=== PATIENT | female | born 1990 | race Caucasian/White ===

== ENCOUNTER 2023-08-16 13:02 | Inpatient (IN) | payer OTHER, SELFPAY ==
[2023-08-16] VITALS (41 sets, daily range): BP systolic 84–116; BP diastolic 37–67; PULSE 29–101; O2SAT 86–100; BMI 24.5
--- NOTE | ~2023-08-16 | US_ITS ---
EXAMINATION: US pelvic complete DATE: 08/17/2023 09:15 INDICATION: Assess for retained product of conception post demise during second trimester of pr egnancy. TECHNIQUE: Multiple transabdominal sonographic images of the pelvis were obtained. COMPARISON: None. FINDINGS: The uterus measures 14.8 x 8.0 x 9.4 cm. The endometrial complex is significantly thickened measurin g up to 4.4 cm in thickness. There is heterogeneous echogenicity of the endometrial complex with mult iple hyperechoic and shadowing foci inferiorly. There is increased vascular flow at the margins of bu t not definitively within the endometrial complex. The right and left ovaries are not visualized. The re is small amount of anechoic free fluid in the pelvis. IMPRESSION: 1. Enlarged uterus with thickened endometrial complex measuring up to 4.4 cm which is abnormal and co nsistent with retained products of conception. Reviewed, dictated and finalized at location A. IMPRESSION: 1. Enlarged uterus with thickened endometrial complex measuring up to 4.4 cm wh ich is abnormal and consistent with retained products of conception.
--- NOTE | 2023-08-16 13:10 | PC.NURSE ---
Dr Cueva at bedside, bedside US performed and no FHT's were noted. Plan of care discussed with patient and spouse. Patient slightly tearful.
[2023-08-16] MEDS: miSOPROStol 200 MCG TABLET 800 MCG VAGINAL (15:00)
[2023-08-16 15:55] LABS: Thyroid Stimulating Hormone 0.897 uIU/mL (0.465-4.680)
[2023-08-16 16:12] LABS: Free T4 Free Thyroxine 0.93 ng/mL (0.78-2.19)
[2023-08-16 16:23] LABS: Rubella IgG Antibody 35.2 IU/ML
--- NOTE | 2023-08-16 16:23 | PM.IMHP ---
H&P: HPI History of Present Illness Date/Time: 08/16/23 16:23 Chief Complaint: decreased movement Narrative: Dimple is a 33yo , @ 21.5wks (BENJA 12/22/[birth year]) who presented to L&D w/ decreased movements. She has been receiving PNC with [facility] where brain anomalies were noted on her anatomy US. Genetic testing via amniocentesis was performed; results pending. No pain/bleeding. No fever, chills. Review of Systems Constitutional: Constitutional: Denies chills, Denies fever(s) and Denies headache(s) Eyes: Eyes: Denies change in vision ENT: Denies headache(s) Cardiovascular: Cardiovascular: Denies chest pain and Denies dyspnea Respiratory: Respiratory: Denies dyspnea Genitourinary: Genitourinary: Denies abnormal vaginal bleeding, Denies pelvic pain and Denies vaginal discharge Neurologic: Denies headache(s) Psychiatric: Psychiatric: Denies anxiety and Denies depression [facility] Surgical History Surgical History (Updated 08/16/23 @ 16:27 by Toya Cueva MD) H/O unilateral salpingectomy ruptured ectopic Meds Vital Signs Vital Signs - 24 hr 08/16/23 15:01 08/16/23 15:15 08/16/23 15:31 Pulse Rate 85 82 79 Blood Pressure 103/64 112/65 108/65 08/16/23 16:01 Pulse Rate 88 Blood Pressure 111/44 L Exam Const: General: cooperative, healthy appearing, comfortable and no acute distress Orientation/consciousness: patient oriented x3 Resp: Effort & Inspection: normal respiratory effort Cardio: Rate: regular rate GI: GI Palp: No abdominal tenderness : Other: FHT's: none observed via bedside US TOCO: no ctxs Cervix: closed Membranes: intact Presentation: cephalic Skin: General skin exam: normal color Neuro: General: patient oriented x3 Extrem: General: normal to inspection Psych: Appearance: grossly normal Affect: normal affect Attitude: cooperative Assessment and Plan Assessment and plan (1) IUFD at 20 weeks or more of gestation: Code(s): O36.4XX0 - Maternal care for intrauterine , not applicable or unspecified Status: Acute Plan - 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
--- NOTE | 2023-08-16 17:00 | PC.NURSE ---
Patient starting to feel cramping. Declining medication at this time. Encouraged to call pain medications is wanted.
[2023-08-16 17:57] LABS: Basophils Absolute Auto 0.1 K/mm3 (0.0-0.1); Basophils Percent Auto 0.5 % (0.2-1.2); Eosinophils Absolute Auto 0.1 K/mm3 (0-0.3); Eosinophils Percent Auto 1.1 % (0-4.4); Hematocrit 39.5 % (37.0-47.0); Hemoglobin 12.6 g/dL (12.0-15.0); Hemoglobin A1C 4.9 % (<5.7); Immature Granulocyte Absolute 0.04 K/mm3 (0.00-0.031); Immature Granulocyte Percent A 0.4 % (0-0.5); Lymphocytes Absolute Auto 1.94 K/mm3 (0.9-3.2); Lymphocytes Percent Auto 20.9 % (18.3-44.2); Mean Corpuscular HGB Conc 31.9 g/dl (32-36); Mean Corpuscular Hemoglobin 30.4 pg (26-34); Mean Corpuscular Volume 95.4 fl (80-100); Mean Platelet Volume 9.5 fl (7.4-10.4); Monocytes Absolute Auto 0.5 K/mm3 (0.1-0.6); Monocytes Percent Auto 5.4 % (2.6-8.5); Neutrophils Absolute Auto 6.7 K/mm3 (1.3-6.7); Neutrophils Percent Auto 71.7 % (45.5-73.1); Platelet Count Result 311 k/mm3 (150-375); Red Blood Count 4.14 M/mm3 (4.2-5.4); Red Cell Distribution Width 14.1 % (11.5-14.5); White Blood Count 9.3 K/mm3 (4.5-10.0)
[2023-08-16] MEDS: fentaNYL CITRATE INJ (*CRX) 100 MCG/2 ML VIAL 50 MCG IV PUSH ×2 (17:59→19:05)
[2023-08-16] MEDS: LACTATED RINGERS 500 ML 999 ML IV CONT (18:59)
--- NOTE | 2023-08-16 19:12 | PC.NURSE ---
1858 Dr. Cueva called in for report on patient. Report given that patient was rating her pain 7/10, having rectal and lower back pain and was requesting her epidural. Reported that fluid bolus was going and anesthesia will be called as soon as that is in. Orders were given by Dr. Cueva to hold the 1899 order for 400 mcg cytotec buccal until epidural was given. Dr. Cueva will be in around 2099 to check patient.
--- NOTE | 2023-08-16 19:51 | WPDANESEPP ---
Anes - Eval Pre Procedure Procedure: labor epidural Date/Time: 08/16/23 19:51 Surgeon: [email or web address] Preop Diagnosis: pain during labor Pre Op Diagnosis: IUFD Patient Data Age: 33 Gender: F Height: 1.55 m Weight: 59 kg Last Vital Signs Pulse 79 08/16/23 17:31 BP 95/37 L 08/16/23 17:31 O2 Del Method Room Air 08/16/23 15:00 Allergies Allergy/AdvReac Type Severity Reaction Status Date / Time No Known Allergies Allergy Verified 08/16/23 17:52 Laboratory Tests 08/16/23 08/16/23 08/16/23 15:01 15:01 15:01 WBC RBC Hgb Hct MCV MCH MCHC RDW Plt Count MPV Immature Gran % (Auto) Neut % (Auto) Lymph % (Auto) [place] % (Auto) Eos % (Auto) Baso % (Auto) Lymph # (Auto) [place] # (Auto) Eos # (Auto) Baso # (Auto) Abs Immat Gran (auto) Absolute Neuts (auto) Absolute Nucleated RBC Nucleated RBC % LA PTT Screen Pending dRVVT Screen Pending dRVVT Additional Test Pending Lupus Anticoag Interp Pending Hemoglobin A1c TSH 0.897 uIU/mL (0.465-4.680) Free T4 0.93 ng/mL (0.78-2.19) Urine Opiates Screen Pending Urine Methadone Screen Pending Ur Barbiturates Screen Pending Ur Phencyclidine Scrn Pending Ur Amphetamine Screen Pending U Benzodiazepines Scrn Pending Urine Cocaine Screen Pending U Cannabinoids Screen Pending Beta-2-GPI IgG Ab Pending Pending Beta-2-GPI IgA Ab Pending Pending Beta-2-GPI IgM Ab Pending Phosphatidylserine Ab Phosphatidylserine IgG Phosphatidylserine IgA Phosphatidylserine IgM Anti-Cardiolipin IgG Ab Anti-Cardiolipin IgA Ab Anti-Cardiolipin IgM Ab RPR CMV IgG Ab CMV IgM Ab HSV I Specific Ab HSV II Specific Ab Parvovirus B19 IgG Intp Parvovirus B19 IgM Intp Rubella IgG Antibody Toxoplasma IgG Ab Toxoplasma IgM Ab Add Miscellaneous Test Blood Type Antibody Screen 08/16/23 08/16/23 08/16/23 15:01 15:01 15:01 WBC RBC Hgb Hct MCV MCH MCHC RDW Plt Count MPV Immature Gran % (Auto) Neut % (Auto) Lymph % (Auto) [place] % (Auto) Eos % (Auto) Baso % (Auto) Lymph # (Auto) [place] # (Auto) Eos # (Auto) Baso # (Auto) Abs Immat Gran (auto) Absolute Neuts (auto) Absolute Nucleated RBC Nucleated RBC % LA PTT Screen dRVVT Screen dRVVT Additional Test Lupus Anticoag Interp Hemoglobin A1c TSH Free T4 Urine Opiates Screen Urine Methadone Screen Ur Barbiturates Screen Ur Phencyclidine Scrn Ur Amphetamine Screen U Benzodiazepines Scrn Urine Cocaine Screen U Cannabinoids Screen Beta-2-GPI IgG Ab Beta-2-GPI IgA Ab Beta-2-GPI IgM Ab Pending Phosphatidylserine Ab Pending Phosphatidylserine IgG Pending Phosphatidylserine IgA Pending Phosphatidylserine IgM Pending Anti-Cardiolipin IgG Ab Pending Pending Anti-Cardiolipi
[2023-08-16] MEDS: miSOPROStol 200 MCG TABLET 400 MCG SUBLINGUAL (20:55)
--- NOTE | 2023-08-16 20:57 | PM.OBPNLAB ---
Pain Control Date/time seen: 08/16/23 20:57 Pain control: epidural Pelvic Exam Dilation (cm): 1 Effacement (%): 20 station: -2 Amniotic membrane status: Intact Assessment and Plan Plan: continuous present management Comments: - s/p loading dose of misoprostol 800mcg vaginally - s/p epidural and now comfortable - continue misoprostol 400mcg q4h buccal
[2023-08-17] VITALS (34 sets, daily range): BP systolic 93–124; BP diastolic 37–84; PULSE 52–107; RESP 16–23; TEMP 36.6; O2SAT 97–100
[2023-08-17] MEDS: miSOPROStol 200 MCG TABLET 400 MCG SUBLINGUAL (01:01)
[2023-08-17] MEDS: LACTATED RINGERS 1,000 ML 125 ML IV CONT ×2 (01:38→07:35)
[2023-08-17] MEDS: miSOPROStol 200 MCG TABLET 400 MCG VAGINAL (05:03)
[2023-08-17] MEDS: fentaNYL CITRATE INJ (*CRX) 100 MCG/2 ML VIAL IV PUSH (05:42)
[2023-08-17] MEDS: CARBOPROST TROMETHAMINE 250 MCG/ML AMPUL IM (05:50)
[2023-08-17] MEDS: LOPERAMIDE HCL 2 MG CAPSULE 4 MG PO ×2 (06:02→13:49)
[2023-08-17] MEDS: miSOPROStol 200 MCG TABLET 800 MCG VAGINAL (06:13)
--- NOTE | 2023-08-17 06:18 | PM.OBPRVD ---
OB - Delivery Note Procedure Delivery date: 08/17/23 Events: Other (IUFD) Induction method: Per Misoprostol Protocol Delivery augmentation: Rupture of Membranes Delivery monitor: None Route of delivery: Laceration Description: None Specimen: Yes (placenta and autopsy of fetus) Quantitative Blood Loss (ml): 200 Anesthesia type: Epidural Disposition: Floor Baby Date of : 08/17/23 Time of : 05:31 Weeks of gestation at delivery: 21 (.6) gender: Male Weight (pounds): 1 Weight (ounces): 4 presentation: vertex Placenta delivery description: Manual Removal score one minute: 0 score five minutes: 0 score ten minutes: 0 Narrative: Dimple progressed to complete dilation with bulging bag. Amniotomy was performed with slightly yellow colored amniotic fluid noted. She delivered the head over intact perineum. The umbilical cord was clamped and cut. The infant was placed in a blanket and given to mom and dad. With gentle traction on the umbilical cord and attempt at manual removal the umbilical cord avulsed. She was given fentanyl for better pain control and pieces of the placenta were removed. She was given hemabate and additional pieces were teased out. She was found to be firm, minimal bleeding and cervix clamping down. Uterine sweep was performed and no obvious pieces of membrane/placenta were noted. Bedside US showed a thin lining, but possible thicker area of lining near the fundus. She was given misoprostol 800mcg vaginally and pitocin was started. Official US will be ordered and her bleeding monitored, currently very light. [facility] Delivery Billing Delivery Delivery: Delivery Charge
[2023-08-17] MEDS: ONDANSETRON INJ 4 MG/2 ML VIAL IV PUSH (06:37)
[2023-08-17] MEDS: METOCLOPRAMIDE HCL INJ 10 MG/2 ML VIAL IV PUSH (07:35)
--- NOTE | 2023-08-17 07:43 | PC.NURSE ---
Driver Manager was called 08/17/23 at 0659. MTS called 08/17/23 at 0741.
[2023-08-17] MEDS: SIMETHICONE 80 MG TAB.CHEW PO (07:45)
[2023-08-17] MEDS: KETOROLAC 30 MG/ML VIAL (*BKC) IV PUSH (08:47)
[2023-08-17 09:10] LABS: Rapid Plasma Reagin Non-Reactive (NonReactive)
--- NOTE | 2023-08-17 09:57 | WPDHPUPDATE1 ---
History and Physical Update Update Date/Time: 08/17/23 09:57 History and Physical has been reviewed, including an updated exam of the patient. There are NO changes in the patient's condition. Risks, benefits, and alternatives have been discussed and questions answered. Patient agrees to proceed with suction D&C due to retained products of conception.
--- NOTE | 2023-08-17 10:20 | PC.NURSE ---
Pt to the OR for D&C.
--- NOTE | 2023-08-17 10:23 | WPDANESEPPF ---
Anes - Initial Pre Proc Eval Procedure: Operation Date: 08/17/23 11:00 Proposed Procedures p Suction Dilatation and Curettage - Toya Cueva MD Date/Time: 08/17/23 10:23 Surgeon: Toya Cueva MD Pre Op Diagnosis: IUFD Patient Data Age: 33 Gender: F Height: 1.55 m Weight: 59 kg Last Vital Signs Pulse 97 08/17/23 07:01 BP 105/50 L 08/17/23 07:01 Pulse Ox 100 08/16/23 21:01 O2 Del Method Room Air 08/16/23 15:00 Allergies Allergy/AdvReac Type Severity Reaction Status Date / Time No Known Allergies Allergy Verified 08/16/23 17:52 Laboratory Tests 08/16/23 08/16/23 08/16/23 15:01 15:01 15:01 WBC RBC Hgb Hct MCV MCH MCHC RDW Plt Count MPV Immature Gran % (Auto) Neut % (Auto) Lymph % (Auto) [place] % (Auto) Eos % (Auto) Baso % (Auto) Lymph # (Auto) [place] # (Auto) Eos # (Auto) Baso # (Auto) Abs Immat Gran (auto) Absolute Neuts (auto) Absolute Nucleated RBC Nucleated RBC % LA PTT Screen Pending dRVVT Screen Pending dRVVT Additional Test Pending Lupus Anticoag Interp Pending Hemoglobin A1c TSH 0.897 uIU/mL (0.465-4.680) Free T4 0.93 ng/mL (0.78-2.19) Urine Opiates Screen Cancelled Urine Methadone Screen Cancelled Ur Barbiturates Screen Cancelled Ur Phencyclidine Scrn Cancelled Ur Amphetamine Screen Cancelled U Benzodiazepines Scrn Cancelled Urine Cocaine Screen Cancelled U Cannabinoids Screen Cancelled Beta-2-GPI IgG Ab Pending Pending Beta-2-GPI IgA Ab Pending Pending Beta-2-GPI IgM Ab Pending Phosphatidylserine Ab Phosphatidylserine IgG Phosphatidylserine IgA Phosphatidylserine IgM Anti-Cardiolipin IgG Ab Anti-Cardiolipin IgA Ab Anti-Cardiolipin IgM Ab RPR CMV IgG Ab CMV IgM Ab HSV I Specific Ab HSV II Specific Ab Parvovirus B19 IgG Intp Parvovirus B19 IgM Intp Rubella IgG Antibody Toxoplasma IgG Ab Toxoplasma IgM Ab Add Miscellaneous Test Blood Type Antibody Screen 08/16/23 08/16/23 08/16/23 15:01 15:01 15:01 WBC RBC Hgb Hct MCV MCH MCHC RDW Plt Count MPV Immature Gran % (Auto) Neut % (Auto) Lymph % (Auto) [place] % (Auto) Eos % (Auto) Baso % (Auto) Lymph # (Auto) [place] # (Auto) Eos # (Auto) Baso # (Auto) Abs Immat Gran (auto) Absolute Neuts (auto) Absolute Nucleated RBC Nucleated RBC % LA PTT Screen dRVVT Screen dRVVT Additional Test Lupus Anticoag Interp Hemoglobin A1c TSH Free T4 Urine Opiates Screen Urine Methadone Screen Ur Barbiturates Screen Ur Phencyclidine Scrn Ur Amphetamine Screen U Benzodiazepines Scrn Urine Cocaine Screen U Cannabinoids Screen Beta-2-GPI IgG Ab Beta-2-GPI IgA Ab Beta-2-GPI IgM Ab Pending Phosphatidylserine Ab Pending Phosphatidylserine IgG Pending Phosphatidylserine IgA
[2023-08-17] MEDS: OXYTOCIN 10 UNITS/ML VIAL 40 UNITS XX (11:04)
[2023-08-17] MEDS: LACTATED RINGERS 1,000 ML 30 ML IV CONT (11:18)
--- NOTE | 2023-08-17 11:33 | W.PM.PROC2 ---
Procedure Note - Detailed Date of Procedure 08/17/23 Pre-op Diagnosis IUFD Retained placenta Post-op Diagnosis Same Procedure Performed Suction D&C under US guidance; manual removal of placenta Surgeon Toya Cueva MD Anesthesia MAC Findings Cervix 4cm dilated; ~10cc of blood clots initially evacuated from vaginal vault. Thickened endometrial stripe along posterior wall up to the fundus. Large amount of retained placenta/products of conception removed. Good hemostasis at end of case with normal cavity and thin lining. Description of Procedure Dimple was taken to the operating room where she was placed under sedation without complications. She was then prepped and draped in the usual sterile fashion in the dorsal lithotomy position with her legs in low Leobardo stirrups. A time-out was performed and she was given doxycycline 200mg IV once. A bivalve speculum was placed within the vagina where the cervix was easily identified. The anterior lip of the cervix was grasped with ring forceps. A 10mm suction curettage was placed at the fundus and in a rotating manner, removing the curettage and a small amount of placenta was removed. This procedure was performed multiple times but no large amount of tissue was removed. The uterus was firm but the cervix remained dilated, minimal bleeding was noted. On US, the lining remained irregular and thickened. I tried using an 8mm suction curettage, but once again no large amount of products of conception was removed. On bimanual exam, I was finally able to palpate the large piece of placenta and was able to slowly tease it out. A significant portion of placenta was removed and the endometrial cavity then felt normal. One additional pass using the 8mm suction curettage was performed with no additional products of conception were removed. Bedside US showed a thin, normal endometrial cavity. Good uterine tone with minimal bleeding remained. Sponge, lap, and instrument counts were correct at the end of the procedure. Dimple was awoke from sedation and taken to recovery in a stable condition. Estimated Blood Loss 100 IV Fluids 200 Pathology Yes (retained placenta) Complications No immediate complications Condition Stable Disposition Floor [facility] Billing Surgery - Charge Forward: Surgery Billing
[2023-08-17] MEDS: fentaNYL CITRATE INJ (*CRX) 100 MCG/2 ML VIAL 25 MCG IV PUSH (11:35)
[2023-08-17] MEDS: ACETAMINOPHEN 325 MG TABLET 650 MG PO (12:52)
[2023-08-17] MEDS: WITCH HAZEL 40 PADS 1 PAD TOPICAL (16:14)
[2023-08-17] MEDS: IBUPROFEN 600 MG TABLET PO (16:17)
[2023-08-17 16:19] LABS: Hematocrit 34.3 % (37.0-47.0); Hemoglobin 11.2 g/dL (12.0-15.0); Mean Corpuscular HGB Conc 32.7 g/dl (32-36); Mean Corpuscular Hemoglobin 30.8 pg (26-34); Mean Corpuscular Volume 94.2 fl (80-100); Mean Platelet Volume 9.3 fl (7.4-10.4); Platelet Count Result 226 k/mm3 (150-375); Red Blood Count 3.64 M/mm3 (4.2-5.4); White Blood Count 16.7 K/mm3 (4.5-10.0)
--- NOTE | 2023-08-18 11:22 | PM.OBDSVD ---
DS: Admitting Diagnosis Discharge Date 08/17/23 Admitting Diagnosis IUFD brain mass DS: Discharge Diagnosis Discharge Diagnosis (1) IUFD at 20 weeks or more of gestation: Code(s): O36.4XX0 - Maternal care for intrauterine , not applicable or unspecified Status: Acute (2) Retained placenta: Qualifiers: Retained placenta detail: portions of placenta Qualified Code(s): O73.1 - Retained portions of placenta and membranes, without hemorrhage Code(s): O73.0 - Retained placenta without hemorrhage Status: Acute OB - DS: Summary OB Procedures : Ultrasound OB Procedures Intrapartum: Spontaneous Vag Delivery OB Procedures: : Curettage Peripartum Data Infant Delivery Method: Natural Vaginal Laceration Description: None Procedures: Procedures Operation Date: 08/17/23 11:00 Actual Procedure Side Surgeon p Suction Dilation and Curettage Not Applicable Toya Cueva MD complications: retained placenta 1: Gender: Male Disposition of : (IUFD) Status at Discharge Functional status at discharge: independent ambulation Overall status at discharge: patient is back to baseline Time Spent with Patient Time attestation: Total time spent providing and/or coordinating discharge services: Time spent: Less than 30 minutes Exam Const: General: cooperative, healthy appearing, comfortable and no acute distress Orientation/consciousness: patient oriented x3 Resp: Effort & Inspection: normal respiratory effort Auscultation: clear to auscultation bilaterally Cardio: Rate: regular rate GI: Inspection: non-distended GI Palp: No abdominal tenderness and Yes Soft to palpation Auscultation: normal bowel sounds : Other: fundus firm Skin: General skin exam: normal color Neuro: General: patient oriented x3 Extrem: General: normal to inspection Psych: Appearance: grossly normal Affect: normal affect Attitude: cooperative DS: Data Data Completed and Pending Pending studies at discharge: Pending at discharge 08/17/23 07:58 Autopsy [PTH] Routine 08/17/23 13:52 Surgical [PTH] Routine Labs on day of discharge: Labs from last 24 hours 08/17/23 08/17/23 08/17/23 16:09 16:09 16:09 WBC 16.7 H RBC 3.64 L Hgb 11.2 L Cancelled Hct 34.3 L Cancelled MCV 94.2 MCH 30.8 MCHC 32.7 RDW 14.0 Plt Count 226 MPV 9.3 Discharge Plan Discharge Attending physician on discharge: Toya Cueva Consulting providers: Liberty Tafoya; Scott Escalera; Sloan Jefferson Discharging Clinician: Toya Cueva Patient Disposition: Home, Self-Care Activity: unlimited, as tolerated and pelvic rest Diet: as tolerated and regular Discharge Instructions: Follow-Up: Call your Provider's office for an appointment to be seen in: Return to [facility] for a follow-up visit: Appointment Date/Time: at What to expect at your follow-up visit: Call [phone] if you are unable to keep your appointment time. EPISIOTOMY/PERINEAL CARE: * Until bleeding stops, use your claire bottle after urinating * Change your pad frequently throughout the day * You may take sitz baths several times a day (fill your bathtub with warm water and soak for 20 minutes.) Do NOT bathe in the water * No tub baths until seen by your physician - You may shower BLEEDING: * Each individual will experience vaginal bleeding, but it will vary with each situation and individual woman. * Vaginal bleeding will go thru cycles-from bright red, to pinkish to a white, creamy discharge. This is considered normal. You may also experience a brownish discharge which is also normal. DIET AND NUTRITION: * Eat at least 3 regular, well-balanced meals per day: include all 4 food groups daily. * You may prefer 6 small meals. * Drink 6-8 glasses of water or non-caffeinat
[2023-08-18 14:32] LABS: Toxoplasma IgG Antibody <7.20 IU/mL (<7.20)
[2023-08-18 14:54] LABS: Toxoplasma IgM Antibody <8.00 AU/mL (<8.00)
[2023-08-19 17:48] LABS: CMV IgM Antibody <30.00 AU/mL (<30.00)
[2023-08-22 21:59] LABS: Lupus dRVVT Screen 31 sec (<=45); PTT-LA Screen 33 sec (<=40)
== END 2023-08-17 21:30 | disposition home or self-care (01) | DRG 807 ==
PROVIDERS: Admitting Provider Obstetrics & Gynecology; Visit Provider Obstetrics & Gynecology
PROC: 10E0XZZ Delivery of Products of Conception, External Approach (ICD-10-PCS; principal; 2023-08-17 11:00)
DX: O36.4XX0 Maternal care for intrauterine death, not applicable or unspecified (principal); Z37.1 Single stillbirth; O36.8320 Maternal care for abnormalities of the fetal heart rate or rhythm, second trimester, not applicable or unspecified; Z3A.21 21 weeks gestation of pregnancy; O73.1 Retained portions of placenta and membranes, without hemorrhage
CPT/HCPCS: 36415; 76856; 83036; 84439; 84443; 85025; 85027; 85613; 85730; 86146; 86147; 86592; 86644; 86645; 86695; 86696; 86747; 86762; 86777; 86850; 86900; 86901; 88305; 88307; 88313; 88341; 88342; A9270; J1885; J2210; J2405; J2590; J2704; J2765; J2795; J3010; J7060; J7120